=== PATIENT | male | born 1975 | race Caucasian/White ===

== ENCOUNTER 2022-06-19 18:48 | Emergency (ER) | payer BC, SELFPAY ==
[2022-06-19] VITALS (11 sets, daily range): BP systolic 126–146; BP diastolic 82–96; PULSE 60–102; RESP 14–20; TEMP 36.9; O2SAT 97–100
--- NOTE | ~2022-06-19 | CT_ITS ---
Clinical Indication: Pulmonary embolus CT Scan of the Chest with Contrast: Technique: Contiguous sections were acquired throughout the chest after intravenous administration of 100 cc of Omnipaque 350. Dose reduction technique was used on this scan by utilizing automated expos ure control and iterative reconstruction technique. The dose-length product (DLP) was 617.49 mGy-cm. Findings: There is no evidence of any significant mediastinal, hilar or axillary lymphadenopathy. There is no f illing defect in the pulmonary arterial tree to suggest pulmonary embolus. There is no evidence of ao rtic dissection or aneurysm. There is no evidence of pleural or pericardial effusion. There are several patchy, peripheral airspace opacities, most notably in the right upper lobe and sup erior segment right lower lobe. Images through the upper abdomen reveal small hepatic cysts. Mild compression deformity of T6 and T9 noted. Impression: No evidence of pulmonary embolus, aortic dissection, or aortic aneurysm. Several patchy, peripheral airspace opacities, as noted above. Correlate for atypical infectious or i nflammatory process. Mild compression deformities of T6 and T9. Reviewed, dictated and finalized at [facility]. Impression: No evidence of pulmonary embolus, aortic dissection, or aortic aneurysm. Several patchy, peripheral airspace opacities, as noted above. Correlate for at ypical infectious or inflammatory process. Mild compression deformities of T6 and T9.
--- NOTE | ~2022-06-19 | XR_ITS ---
EXAMINATION: XR chest 2V 06/19/2022 20:18 INDICATION: Chest pain PROCEDURE: 2 view chest COMPARISON: 03/04/2013 FINDINGS: There is a focal pleural-based asymmetry right mid thorax. Shallow inspiration with crowdin g of the pulmonary vessels. The cardiomediastinal silhouette is within normal limits. There are no p leural effusions. There is no pneumothorax suspected. IMPRESSION: 1: No acute cardiopulmonary disease. 2: Focal pleural-based asymmetry right mid thorax. Recommend correlation with noncontrast CT on a no nemergent basis.. Reviewed, dictated and finalized at [facility]. IMPRESSION: 1: No acute cardiopulmonary disease. 2: Focal pleural-based asymmetry right mid thorax. Recommend correlation with noncontrast CT on a nonemergent basis..
--- NOTE | 2022-06-19 18:49 | ECG_ITS ---
Measurements Intervals [place] Rate: 75 P: 21 [place]: 154 QRS: 9 QRSD: 93 T: 10 QT: 381 QTc: 425 Interpretive Statements SINUS RHYTHM BORDERLINE T WAVE ABNORMALITY- INFERIOR LEADS BORDERLINE ECG NO PREVIOUS ECG AVAILABLE FOR COMPARISON Electronically Signed On 06-19-2022 21:23:15 CDT by Clifford Rangel D.O.
[2022-06-19 19:21] LABS: Basophils Percent Auto 0.2 % (0.2-1.2); Eosinophils Absolute Auto 0.1 K/mm3 (0-0.3); Eosinophils Percent Auto 0.7 % (0-4.4); Immature Granulocyte Absolute 0.02 K/mm3 (0.00-0.031); Immature Granulocyte Percent A 0.2 % (0-0.5); Lymphocytes Absolute Auto 2.52 K/mm3 (0.9-3.2); Lymphocytes Percent Auto 28.2 % (18.3-44.2); Mean Corpuscular HGB Conc 34.1 g/dl (32-36); Mean Corpuscular Volume 90.9 fl (80-100); Mean Platelet Volume 10.2 fl (7.4-10.4); Monocytes Absolute Auto 0.7 K/mm3 (0.1-0.6); Monocytes Percent Auto 7.9 % (2.6-8.5); Neutrophils Absolute Auto 5.6 K/mm3 (1.3-6.7); Neutrophils Percent Auto 62.8 % (45.5-73.1); Platelet Count Result 230 k/mm3 (150-375); Red Blood Count 4.84 M/mm3 (4.6-6.20); Red Cell Distribution Width 12.6 % (11.5-14.5)
[2022-06-19 19:34] LABS: Prothrombin Time 12.9 Seconds (11.1-14.7)
[2022-06-19 19:35] LABS: Alanine Aminotransferase 26 U/L (6-50); Albumin Level 4.7 g/dL (3.5-5.1); Alkaline Phosphatase 60 U/L (38-126); Anion Gap 5 mmol/L (8-16); Aspartate Amino Transferase 28 U/L (17-59); Bilirubin,Total 0.9 mg/dL (0.2-1.3); Blood Urea Nitrogen 14 mg/dL (9-20); Carbon Dioxide 29 mmol/L (22-30); Chloride 98 mmol/L (98-107); Estimated CRCL calculation 103 ml/min; Estimated Glomerular Filt Rate > 60; Glucose 127 mg/dL (65-110); Lipase 72 U/L (23-300); Partial Thromboplastin Time 26.5 SECONDS (22.3-36.8); Potassium 3.9 mmol/L (3.4-5.0); Sodium 132 mmol/L (137-145)
[2022-06-19 19:47] LABS: Troponin I < 0.012 ng/mL (0.000-0.034)
[2022-06-19] MEDS: ASPIRIN 81 MG CHEWABLE TABLET 324 MG PO (23:45)
[2022-06-20] VITALS (12 sets, daily range): BP systolic 118–132; BP diastolic 69–84; PULSE 50–66; RESP 13–20; TEMP 36.6; O2SAT 95–99
--- NOTE | 2022-06-20 00:11 | ED.GENADULT ---
HPI - General Adult General Chief complaint: Chest Pain Stated complaint: cp, sob Time Seen by Provider: 06/19/22 23:04 History of Present Illness HPI narrative: This is a 47-year-old male presenting ED with chief complaint of chest pain. Patient said that she has been started earlier tonight, as a sharp pain in his right chest wall, is nonradiating, 8 out 10 intensity and constant. He has never experienced pain like this before. It is worse with inspiration there are no alleviating factors. It is associated with shortness of breath. Is not associated with diaphoresis vomiting exertion, fever chills productive cough or lower extremity edema. Patient has no risk factors for PE. He does work as an precision aircraft systems assembler. Related Data Allergies Allergy/AdvReac Type Severity Reaction Status Date / Time No Known Allergies Allergy Unverified 02/09/16 18:39 [facility] Past Medical History Medical History Asthma Exam Narrative: APPEARANCE: No apparent distress. Head: atraumatic. EYES: EOMI, NOSE: Atraumatic NECK: Trachea midline sina RESPIRATORY: No increased rate of breathing , clear to auscultation bilaterally CARDIOVASCULAR: RRR, no peripheral edema ABDOMINAL: Non-distended soft no guarding rebound MUSCULOSKELETAl: No obvious deformities NEURO: Alert. Moving 4/4 extremities SKIN:: Warm, dry. 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 lab work x-ray EKG been obtained. -DDX includes but is not limited to: Pleurisy, musculoskeletal pain, pneumonia, ACS -Co-morbidities complicating care: asthma, precision aircraft systems assembler -Social determinants of health: patient works as an precision aircraft systems assembler, lives with his May and his [id number] -External Chart Review: none -Hx from independent Sources: -May -Discussion of Management/Consultants: none -Independent interpretation of studies: Independent EKG interpretation: Rhythm [sinus], Rate [75], [place] -[normal], [place] -[normal], QRS [narrow], QTC [normal], T waves -[negative for concerning inversions], ST Segments - [Negative for concerning elevations] Final interpretations: [Normal Sinus Rhythm] CBC within normal limits. Metabolic panel was normal. Troponins negative x2. Chest x-ray showed a pleural based lesion on the right side that directly corresponds with the patient's pain. CT has been ordered to further evaluate. CT PE did not reveal a pulmonary embolism. Stat rad did not comment on the pleural finding. Dx tests considered but not ordered: None -Procedures: -Interventions: Motrin, Tylenol, aspirin -Shared decision making / Disposition: Upon re-evaluation patient's symptoms improved dramatically with Motrin and Tylenol. He is comfortable going home. I did discuss the pleural based lesion on the right side that corresponds with his pain. He will be directed to follow up with pulmonology for further evaluation. -RX Vital Signs Vital Signs: Vital Signs Temperature 98.4 F 06/19/22 19:13 Pulse Rate 102 H 06/19/22 19:13 Respiratory Rate 18 06/19/22 19:13 Blood Pressure 146/91 H 06/19/22 19:13 Pulse Oximetry 97 06/19/22 19:13 Oxygen Delivery Room Air 06/19/22 19:13 Temperature 98 F 06/20/22 03
[2022-06-20 00:14] LABS: Troponin I < 0.012 ng/mL (0.000-0.034)
[2022-06-20] MEDS: IBUPROFEN 400 MG TABLET 800 MG PO (00:53)
[2022-06-20] MEDS: ACETAMINOPHEN 500 MG TABLET 1000 MG PO (00:53)
[2022-06-20 02:22] LABS: Troponin I < 0.012 ng/mL (0.000-0.034)
== END 2022-06-20 04:20 | disposition home or self-care (01) ==
PROVIDERS: Emergency Medicine; Emergency Provider Emergency Medicine; PCP Internal Medicine
DX: R09.1 Pleurisy (principal); J94.8 Other specified pleural conditions; R94.31 Abnormal electrocardiogram [ECG] [EKG]
CPT/HCPCS: 36415; 71046; 71275; 80053; 83690; 84484; 85025; 85610; 85730; 93005; 99284; A9270; Q9967

== ENCOUNTER 2022-11-14 13:58 | Outpatient (CLI) | payer BC, SELFPAY ==
--- NOTE | 2022-11-17 17:11 | WPDPFTINT ---
PFT Procedure Performed PFT Procedure Performed Spirometry with Pre/Post Bronchodilator Plethysmography (Lung Vol) Diffusing Cap (DLCO) Flow Vol Loop PFT Interpretation This is a pulmonary function test with pre and post-bronchodilator spirometry, plethysmography and diffusing capacity. The test was performed and results interpreted in accordance with the 2019 and 2005 ATS/ERS Task Force guidelines respectively using the Global Lung Function Initiative-2012 reference equations. Patient demonstrated good effort and cooperation. Reproducibility criteria were met. The quality of the pre bronchodilator spirometry maneuver was Grade A and post bronchodilator spirometry maneuver was Grade A. Findings: Spirometry: The contour the inspiratory and expiratory flow tracing are normal. The pre bronchodilator FVC is 3.65 L, 73% predicted. The pre bronchodilator FEV1 is 2.87 L, 72% predicted. The pre bronchodilator FEV1: FVC ratio 79%. The post bronchodilator FVC is 3.93 L, representing an 8% increase. The post bronchodilator FEV1 is 3.12 L, representing a 9% increase. The post bronchodilator FEV1: FVC ratio is 79%. Plethysmography: The total lung capacity is 5.37 L, 77% predicted. The functional residual capacity is 1.77 L, 50% predicted. The residual volume is 1.52 L, 75% predicted. Diffusing capacity: The diffusing capacity unadjusted for hemoglobin and carboxyhemoglobin is 28.4, 92% predicted. The diffusing capacity adjusted for alveolar volume is 5.61, 122% predicted. Impression: There is a mild restrictive ventilatory abnormality. The spirometry is normal without evidence of an obstructive abnormality. There is no significant improvement after inhaling a single dose of albuterol. The diffusing capacity is normal. There are no prior studies for comparison
== END 2022-11-14 13:59 | disposition home or self-care (01) ==
PROVIDERS: PCP Internal Medicine; Visit Provider Nurse Practitioner
DX: J45.909 Unspecified asthma, uncomplicated (principal)
CPT/HCPCS: 94060; 94726; 94729

== ENCOUNTER 2024-07-23 13:19 | Outpatient (CLI) | payer OTHER, SELFPAY ==
--- NOTE | ~2024-07-23 | CT_ITS ---
CT Scan of the Chest without Contrast: Clinical Indication: Abnormal findings on diagnostic imaging Technique: Contiguous sections were acquired throughout the chest without intravenous contrast. Dose reduction technique was used on this scan by utilizing automated exposure control and iterative recon struction technique. The dose-length product (DLP) was 416.13 mGy-cm. COMPARISON: 06/20/2022 Findings: There is no evidence of any significant mediastinal, hilar or axillary lymphadenopathy. The mediastin al soft tissues appear normal. There is no evidence of pleural or pericardial effusion. The lungs are clear. No pulmonary nodules or infiltrates are noted. Images through the upper abdomen reveal no abnormalities. Stable chronic compression deformities in t he spine, most notably at T6, T9, and T12. Impression: No acute abnormality. Clear lungs. Stable compression deformities in the spine. Reviewed, dictated and finalized at [facility]. Impression: No acute abnormality. Clear lungs. Stable compression deformities in the spine.
--- OUTSIDE RECORDS SUMMARY | 2024-07-23 13:24 | XMS_ITS | Data Portability ---
Author Organization [place] [facility], Main Office Address [address] [place] [address] Care Team Providers Care Heel Stiffener Name Role Phone LORENZO FLETCHER Primary Care Provider Assessment Encounter Date Assessment Date Assessment LastModified by Organization Details LastModified Time 06/24/2022 06/24/2022 Will check some inflammatory markers and also ERIC C-reactive protein rheumatoid factor doxycycline for atypical pathogens for 10 days I will see him back in a month if he gets worse fever chills cough night sweats anything like that he will call back. I plan to reviewed with films with Radiology at the hospital to see exactly what it is that they are seeing may just need to re-scanned after 4-6 weeks to see if these clear. discussed with him and . they are in agreement with plan [email or web address] Not available 06/24/2022 22:35:11 07/29/2022 07/29/2022 Pulmonary consult significance of CT scan findings not clear just yet Allergy consult Does not have any radicular symptoms from his lower back will continue to monitor I will see him back in about 4 months [email or web address] Not available 07/29/2022 21:19:51 Plan of Treatment Reminders Order Date Submit Date Provider Last Modified By Organization Details Last Modified Time Details Appointments None recorded. 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 Thank you 2022 023 BESSIE Deb Brown MD, [address] [facility], [place], [address], 15:38:[address] referral 2022 023 [email or web address] Not available 15:58:24 Procedures None recorded. Surgeries None recorded. Imaging CT, chest, w/o contrast - DUE 05/2023 023 [email or web address] Not available 12:04:56 CT, chest, w/o contrast - high res, reference #[id number] No auth required 2022 023 [facility] ([facility] Scheduling), [address] [place], [address], 3 14:23:15 Medication Orders doxycycline hyclate 100 mg capsule [address] [id number], [address] [facility], [place], [place], [id number], 3 11:47:00 Patient TargetsNo targets recorded. 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 Thank you Referring Physician: Lorenzo Fletcher, Internal Medicine, Encounter Date: 07/29/2022 Results Created Date Observation Date Name Description Value Unit Range Abnormal Flag Note LastModifiedBy Organization Detail LastModifiedTime 06/25/19 23 06/24/2022 COMPR EHENS CHRISTINA METAB OLIC PANEL sodium 134 mmol/ L 137-14 5 low Not Available [facility] (Lab) [address] [place], [address], 06/24/2022 12:41:24 06/25/19 23 06/24/2022 COMPR EHENS CHRISTINA METAB OLIC PANEL potassium 4.4 mmol/ L 3.5-5. 1 Not Available [facility] (Lab) [address] [place], [address], 06/24/2022 12:41:24 06/25/19 23 06/24/2022 COMPR EHENS CHRISTINA METAB OLIC PANEL chloride 99 mmol/ L 98-107 Not Available [facility] (Lab) [address] [place], [address], 06/24/2022 12:41:24 06/25/19 23 06/24/2022 COMPR EHENS CHRISTINA METAB OLIC PANEL carbon dioxide 26 mmol/ L 22-30 Not Available [facility] (Lab) [address] [place], [address], 06/24/2022 12:41:24 06/25/19 23 06/24/2022 COMPR EHENS CHRISTINA METAB OLIC PANEL anion gap 13.4 mmol/ L 14-22 low Not Available [facility] (Lab) [address] [place], [address], 06/24/2022 12:41:24 06/25/19 23 06/24/2022 COMPR EHENS CHRISTINA METAB OLIC PANEL glucose 109 mg/dL 70-99 high Not Available [facility] (Lab) [address] [place], [address], 06/24/2022 12:41:24 06/25/19 23 06/24/2022 COMPR EHENS CHRISTINA METAB OLIC PANEL BUN 10 mg/dL 8-19 Not Available [facility] (Lab) [address] [place], [address], 06/24/2022 12:41:24 06/25/19 23 06/24/2022 COMPR EHENS CHRISTINA METAB OLIC PANEL creatinine 0.89 mg/dL 0.66-1 .25 Not Available [facility] (Lab) [address] [place], [address], 06/24/2022 12:41:24 06/25/19 23 06/24/2022 COMPR EHENS CHRISTINA METAB OLIC PANEL GFR >60 Refer ence Range : Adair ge GFR Healt hy Adult : >60 mL/mi n/1.7 3 m2 Chron ic Kidne y Disea se: 15-60 mL/mi n/1.7 3 m2 Kidne y Failu re: <15/m L/min /1.73 m2 www.n iddk. nih.g ov The MDRD study equat ion has not been valid ated in child sea <18 years of age; pregn ant women ; the elder ly >85 years of age; or in some racia l or ethni c subgr oups, such as Hispa nics. Outsi de the valid ated candelaria eters , estim ated GFR is less accur ate, requi ring clini dylan judgm ent on a case- by-ca se basis . Clini dylan inter preta tion for other races and ages must be made by the clini el. The MDRD study equat ion has not been valid ated for the evalu ation of serum creat inine relat ed to nutri taylor l statu s or medic ation usage . For perso ns <18 years of age, a pedia tric GFR calcu lator is avail able on the [facility] websi te: https ://amberly porter.tina gibson/pascual cox s/kdo qi/gf r_cal culat or Not Available [facility] (Lab) [address] [place], [address], 06/24/2022 12:41:24 06/25/19 23 06/24/2022 COMPR EHENS CHRISTINA METAB OLIC PANEL alkaline phosphatase 62 U/L 38-126 Not Available [facility] (Lab) [address] [place], [address], 06/24/2022 12:41:24 06/25/19 23 06/24/2022 COMPR EHENS CHRISTINA METAB OLIC PANEL alanine aminotransfe rase 26 U/L 0-50 Not Available [facility] (Lab) [address] [place], [address], 06/24/2022 12:41:24 06/25/19 23 06/24/2022 COMPR EHENS CHRISTINA METAB OLIC PANEL aspartate aminotransfe rase 27 U/L 15-46 Not Available [facility] (Lab) [address] [place], [address], 06/24/2022 12:41:24 06/25/19 23 06/24/2022 COMPR EHENS CHRISTINA METAB OLIC PANEL bilirubin, total 1.30 mg/dL 0.20-1 .30 Not Available [facility] (Lab) [address] [place], [address], 06/24/2022 12:41:24 06/25/19 23 06/24/2022 COMPR EHENS CHRISTINA METAB OLIC PANEL calcium 9.1 mg/dL 8.4-10 .2 Not Available [facility] (Lab) [address] [place], [address], 06/24/2022 12:41:24 06/25/19 23 06/24/2022 COMPR EHENS CHRISTINA METAB OLIC PANEL total protein 7.2 g/dL 6.3-8. 2 Not Available [facility] (Lab) [address] [place], [address], 06/24/2022 12:41:24 06/25/19 23 06/24/2022 COMPR EHENS CHRISTINA METAB OLIC PANEL albumin 4.4 g/dL 3.4-5. 0 Not Available [facility] (Lab) [address] [place], [address], 06/24/2022 12:41:24 06/25/19 23 06/24/2022 COMPR EHENS CHRISTINA METAB OLIC PANEL globulin 2.8 g/dL 2.6-4. 2 Not Available [facility] (Lab) [address] [place], [address], 06/24/2022 12:41:24 06/25/19 23 06/24/2022 COMPR EHENS CHRISTINA METAB OLIC PANEL A/G ratio 1.6 ratio 1.0-2. 0 Not Available [facility] (Lab) [address] [place], [address], 06/24/2022 12:41:24 06/25/19 23 06/24/2022 RHEUM ATOID FACTO R rf <8.6 IU/mL 0.0-11 .9 Not Available [facility] (Lab) [address] [place], [address], 06/24/2022 12:49:46 06/25/19 23 06/24/2022 C REACT CHRISTINA PROTE IN,UL TRA SENS C-reactive protein 6.22 mg/dL 0.0-0. 5 high Not Available [facility] (Lab) [address] [place], [address], 06/24/2022 12:49:53 06/25/19 23 06/24/2022 SEDIM ENTAT ION RATE erythrocyte sedimentatio n rate 16 mm/HR 0-20 Not Available [facility] (Lab) [address] [place], [address], 06/24/2022 13:05:05 06/25/19 23 06/26/2022 ERIC/A NTINU CLEAR ANTIB ODIES ,IFA antinuclear antibodies, ifa Negati ve Negat christina <1:80 Borde rline 1:80 Posit christina >1:80 ICAP nomen clatu re: AC-0 For more infor meme whitt about Hep-2 cell patte rns use ANApa ttern s.org , the offic ial juan heart for the Inter natio nal Conse nsus on Antin uclea r Antib brooks (ERIC) Patte rns (ICA ). Perfo rmed at: [address], [place] [address] Lab Direc tor: Jeyson mcclure PhD, Phone : [phone] Not Available [facility] (Lab) [address] [place], [address], 06/26/2022 13:10:58 08/02/19 22 07/16/2021 CPAP compl iance * No observ ation record ed. [id number] Not Available 06/04/2022 01:56:04 06/20/19 23 06/19/2022 XR, chest , 2 view No observ ation record ed. [address], [address], 06/24/2022 13:27:25 06/21/19 23 06/20/2022 CT, chest , w/ contr ast No observ ation record ed. [address], [address], 06/30/2022 16:00:35 07/24/19 CT, chest , w/o contr ast [facility] [address] [place] [address] [phone] [facility] Name: JAROCHO BUCHANAN Access ion #: [id number] Sex: M : 1975 7 Locati on: RA2 Attend ing Physic mayra: LU FLETCHER Orderi ng Physic mayra: LU FLETCHER Exam Date: 023 8:06 AM Exam Name: CT CHEST WO Admitt ing Diagno sis(es ): RADIOL OGY REPORT - FINAL EXAM: CT CHEST WO HISTOR Y: pleuri sy COMPAR FABI: None. TECHNI QUE: The chest is evalua al withou t intrav enous contra st. Axial images are recons tructe d in the gonzalez l, sagitt al, and axial planes and are review ed with medias tinal lung window s settin gs. This CT exam was perfor med using one or more of the follow ing dose reduct ion techni ques: Automa al exposu re contro l, adjust ment of the mA and/or kV accord ing to patien t size, or use of iterat christina recons tructi on techni que. FINDIN GS: Heart: Normal size, no perica rdial effusi on Page 1 of 3 [facility] Guilherme Name: JAROCHO BUCHANAN Access ion #: [id number] Sex: M : 1975 7 Exam Date: 023 8:06 AM Exam Name: CT CHEST WO Admitt ing Diagno sis(es ): Vascul ar struct ures: Unrema rkable Pleura l space: No eviden ce of pleura l plaque s. No pneumo thorax . No pleura l effusi ons. Lungs: No suspic ious nodule s or consol idates . There areas of linear atelec tatic densit y within the right upper lobe, right middle lobe and left lower lobe. Medias tinum: No signif icant medias tinal mass or lympha denopa thy. Osseou s struct ures: *Radhames red with the prior study of 2018, there is a 25% superi or endpla te compre ssion deform ity of the superi or endpla te of the T6 verteb ral body new compar ed with 2019, yet, age indete rminat e based on appear ance. If the patien t has sympto matolo gy in this area, MRI of the thorac ic spine withou t contra st would prove benefi cial. *Mild stable 5% superi or endpla te compre ssion deform ity of T7. *Multi level degene rative change s noted demons tratin g progre ssion. Extrat horaci c soft tissue s: Unrema rkable Upper abdome n: Simple right and left hepati c lobe cysts re-maykel ntifie d, stable . No adrena l mass. IMPRES KAREN: 1. Age indete rminat e 25% superi or endpla te compre ssion of T6, correl ate with sympto matolo gy, if the possib ility of a subacu te fractu re exists , and, additi onal evalua tion is clinic ally necess jerrell, MRI would prove benefi cial. Page 2 of 3 [facility] Guilherme robbins Name: JAROCHO BUCHANAN Access ion #: [id number] Sex: M : 1975 7 Exam Date: 8:06 AM Exam Name: CT CHEST WO Admitt ing Diagno sis(es ): 2. Multil evel degene rative change s noted throug hout the thorac ic spine. 3. The bilate ral pleura l spaces appear unrema rkable . 4. No effusi ons or consol idates . Create d and electr onical ly signed by: Kev bernal MD Signed Date: 8:33 AM (CT) Dictat ed by: Kev bernal MD DD: 8:33 AM (CT) DT: 8:33 AM (CT) Page 3 of [email or web address] [place] [address] (Imaging) [address] [place] [address], [address], 07/29/2022 16:33:48 07/26/20 23 10/29/2022 CT, chest , w/o contr ast No observ ation record ed. [email or web address] [facility] (One Call Scheduling) [address] [place], [address], 11/06/2022 18:07:48 11/18/19 23 11/14/2022 compl ete PFT w/ post [facility] hodil ator delaney metry * No observ ation record ed. [email or web address] (Cardiology & Emg) [address] [facility] [address], [place], [address], 11/21/2022 15:59:13 Result Notes None recorded. Problems Name Problem SNOMED Code Status Onset Date Resolution Date Notes Provider Name and Address Organization Details Recorded Time Otalgia 23356670 Active Not Available [facility] 3 09:00:26 Body mass index 30+ - obesity 777784324 Active 2021 Not Available [facility] 3 09:00:26 Asthma 860030008 Active Not Available [facility] 3 09:00:26 Wax in ear canal 747755404 Active Not Available [facility] 3 09:00:26 Cut of hand 873206030 Active Not Available [facility] 3 09:00:26 History of SARS-CoV-2 4223192044665 83078 Active 2021 Not Available [facility] 3 09:00:26 Pain in right knee Active 2016 Not Available [facility] 3 09:00:26 Sinusitis 77986839 Active Not Available [facility] 3 09:00:26 Dyslipidem ia 475876136 Active 2018 Not Available [facility] 3 09:00:26 Chronic cough 66772444 Active 2021 Not Available [facility] 3 09:00:26 Obstructiv e sleep apnea syndrome 14168168 Active 2019 Not Available [facility] 3 09:00:26 Pleurisy 207256694 Active 2022 Not Available [facility] 3 09:00:26 Computed tomography result abnormal 406195266 Active 2022 Not Available [facility] 3 09:00:26 Seasonal allergy 156787586 Active 2022 Not Available [facility] 3 09:00:26 Abnormal findings on diagnostic imaging of lung 882766177 Active 2022 Not Available [facility] 3 09:00:26 Atelectasi s 10402211 Active 2022 Not Available [facility] 3 09:00:26 Problem Notes None recorded. Procedures Surgical History Date Name Laterality Status Provider Name and Address Organization Details Recorded Time [place] [facility] completed Not Available [facility] 06/04/2022 01:22:56 Imaging Results Imaging Date Name Status LastModified by Organization Details LastModified Time 07/16/2021 CPAP compliance* completed [id number] Information not available 06/04/2022 01:56:04 06/19/2022 XR, chest, 2 view completed [address], [address], 06/24/2022 13:27:25 06/20/2022 CT, chest, w/ contrast completed [address], [address], 06/30/2022 16:00:35 07/23/2022 CT, chest, w/o contrast completed [email or web address] (Imaging) [address] [place], [address], 07/29/2022 16:33:48 10/29/2022 CT, chest, w/o contrast completed [email or web address] ([facility] Call Scheduling) [address] [place], [address], 11/06/2022 18:07:48 11/14/2022 complete PFT w/ post bronchodilator spirometry* completed [address] (Cardiology & Emg) [address] [place] [address], [place], [address], 11/21/2022 15:59:13 Procedure Notes None recorded. Medical Equipment None Reported. Allergies No known drug allergies Medications Name Sig Start Date Stop Date Status Note LastModified by Organization Details LastModified Time celecoxib 200 mg capsule TK 1 C PO QD 03/01 completed Not Available Not Available Not Available doxycyclin e hyclate 100 mg capsule TAKE 1 CAPSULE BY MOUTH TWICE DAILY FOR 10 DAYS 07/29 completed Not Available Not Available Not Available azithromyc in 250 mg tablet TK 2 TS PO FIRST DAY THEN TK 1 T PO QD 01/23 completed Not Available Not Available Not Available benzonatat e 200 mg capsule 12/19 completed Not Available Not Available Not Available pantoprazo le 40 mg tablet,del ayed release TAKE 1 TABLET BY MOUTH EVERY DAY active Not Available Not Available No t Available etodolac 400 mg tablet Take 1 tablet twice a day by oral route for 30 days. active Not Available Not Available No t Available montelukas t 10 mg tablet TAKE 1 TABLET BY MOUTH EVERY DAY active Not Available Not Available No t Available methylpred nisolone 4 mg tablets in a dose pack uud 11/09 completed Not Available Not Available Not Available albuterol sulfate HFA 90 mcg/actuat ion aerosol inhaler INL 2 PFS PO Q 6 H PRF SOB 12/24 completed Not Available Not Available Not Available fluticason e propionate 50 mcg/actuat ion nasal spray,susp ension Inhale 1 spray every day by intranasa l route. active Not Available Not Available No t Available zolpidem ER 6.25 mg tablet,ext ended release,mu ltiphase TAKE ONE TABLET BY MOUTH EVERY NIGHT AT BEDTIME NEEDED active Not Available Not Available No t Available Arnuity Ellipta 200 mcg/actuat ion powder for inhalation INHALE 1 PUFF BY MOUTH EVERY DAY DIRECTED 09/24 completed Not Available Not Available Not Available Arnuity Ellipta 100 mcg/actuat ion powder for inhalation Inhale 1 puff every day by inhalatio n route as directed for 30 days. active One puff daily, rinse and spit after use Not Available Not Available Not Available Afluria Qd (36 mos up)(PF)60 mcg (15 mcg x4)/0.5 mL IM syringe ADM 0.5ML IM UTD active Not Available Not Available No t Available Vitals Date Recorded Body mass index (BMI) Body height Oxygen saturation Oxygen saturation in Arterial blood by Pulse oximetry Heart rate Body temperature Body weight Systolic blood pressure Diastolic blood pressure Provider Name and Address Organization Details Last Updated DateTime 2 34.3 kg/m2 177.8 cm 97 % 97 % 65 /min 97.2 [degF] 334327. 58 g 122 mm[Hg] 72 mm[Hg] Not Available [facility] 3 01:33:43 Date Recorded Body height Body mass index (BMI) Body weight Body temperature Heart rate Systolic blood pressure Diastolic blood pressure Provider Name and Address Organization Details Last Updated DateTime 3 177.8 cm 32.4 kg/m2 240557. 88 g 98.9 [degF] 66 /min 110 mm[Hg] 76 mm[Hg] Marilin navarro RN [facility] [employer] 3 10:39:42 Date Recorded Body height Body mass index (BMI) Body weight Body temperature Heart rate Systolic blood pressure Diastolic blood pressure Provider Name and Address Organization Details Last Updated DateTime 3 177.8 cm 32.6 kg/m2 928604. 47 g 98 [degF] 58 /min 124 mm[Hg] 80 mm[Hg] TRISTAN Aldana [facility] [employer] 3 11:48:59 Date Recorded Body height Body temperature Body mass index (BMI) Body weight Heart rate Oxygen saturation Oxygen saturation in Arterial blood by Pulse oximetry Systolic blood pressure Diastolic blood pressure Provider Name and Address Organization Details Last Updated DateTime 3 177.8 cm 97.2 [degF] 32.4 kg/m2 961695. 88 g 72 /min 98 % 98 % 128 mm[Hg] 70 mm[Hg] Kim Juan MA [facility] 3 12:35:38 Date Recorded Body height Body mass index (BMI) Body weight Heart rate Oxygen saturation Oxygen saturation in Arterial blood by Pulse oximetry Systolic blood pressure Diastolic blood pressure Provider Name and Address Organization Details Last Updated DateTime 3 177.8 cm 32.4 kg/m2 661263. 88 g 60 /min 98 % 98 % 118 mm[Hg] 70 mm[Hg] Kim Juan MA [facility] 15:48:51 Social History Question Answer Notes LastModified by Organization Details LastModified Time Tobacco Smoking Status Never Smoker Sharon Avelar MA null, [facility] 10/17/2022 12:25:50 Do You Have An Advance Directive? No [id number] Information not available 06/04/2022 What Is Your Level Of Alcohol Consumption? Moderate [id number].[id number] [id number] Information not available 06/04/2022 Do You Wear A Helmet When Biking? No Does Not Bike Information not available 10/17/2022 What Is Your Level Of Caffeine Consumption? Moderate [id number].0301 [id number] Information not available 06/04/2022 How Much Tobacco Do You Chew? None [id number] [id number] Information not available 06/04/2022 In The 14 Days Before Symptom Onset, Have You Had Close Contact With A Laboratory-confi rmed COVID-19 While That Case Was Ill? No Information not available 10/17/2022 In The 14 Days Before Symptom Onset, Have You Had Close Contact With A Person Who Is Under Investigation For COVID-19 While That Person Was Ill? No Information not available 10/17/2022 Are You Currently Employed? Yes Information not available 10/17/2022 What Type Of Diet Are You Following? REGULAR [id number].030 [id number] Information not available 06/04/2022 Which Illicit Or Recreational Drugs Have You Used? None Information not available 10/17/2022 Do You Or Have You Ever Used E-cigarettes Or Vape? Never Used Electronic Cigarettes Information not available 10/17/2022 What Is The Highest Grade Or Level Of School You Have Completed Or The Highest Degree You Have Received? 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 No Information not available 10/17/2022 What Is The Fluoride Status Of Your Home? Unknown Information not available 10/17/2022 Are There Any Guns Present In Your Home? Yes Information not available 10/17/2022 Do You Use Insect Repellent Routinely? No Information not available 10/17/2022 Where [facility] You Live? [facility] Information not available 10/17/2022 Do You Have A Medical Power Of Requirements Analyst? No Information not available 10/17/2022 What Was The Date Of Your Most Recent Tobacco Screening? 07/29/2022 Information not available 10/17/2022 Have You Ever Been Counseled For Unhealthy Alcohol Use? No Information not available 10/17/2022 Do You Have Any Pets? No Information not available 10/17/2022 What Is Your Relationship Status? [id number] [id number] Information not available 06/04/2022 Do You Use Your Seat Belt Or Car Seat Routinely? Yes Information not available 10/17/2022 Do You Have Smoke And Carbon Monoxide Detectors In Your Home? Yes Information not available 10/17/2022 Are You Passively Exposed To Smoke? No Information not available 10/17/2022 Do You Or Have You Ever Used Smokeless Tobacco? Never Used Smokeless Tobacco [id number].0301 [id number] Information not available 06/04/2022 Are There Any Smokers In Your House? No Information not available 10/17/2022 How Much Tobacco Do You Smoke? No MIGRATION.[id number] [id number] Information not available 06/04/2022 What Types Of Sporting Activities Do You Participate In? None Information not available 10/17/2022 Do You Feel Stressed (tense, Restless, Nervous, Or Anxious, Or Unable To Sleep At Night)? [id number] Information not available 10/17/2022 Do You Use Any Illicit Or Recreational Drugs? No Information not available 10/17/2022 Do You Use Sunscreen Routinely? Yes Information not available 10/17/2022 Has Tobacco Cessation Counseling Been Provided? No Not Needed-ne mookie Smoked Information not available 10/17/2022 How Many Years Have You Smoked Tobacco? 0 Information not available 10/17/2022 Have You Recently Traveled Abroad? No Information not available 10/17/2022 Do You Have Any Dietary Restrictions? No Information not available 10/17/2022 Do You Or Have You Ever Used Any Other Forms Of Tobacco Or Nicotine? No Information not available 10/17/2022 Sex: Male Functional Status Question Answer Note LastModified by Organizat ion Details LastModified Time What is your exercise level? Occasional [id number] Information not available 06/04/2022 Mental Status None recorded. Family History Relationship Description Onset Age of this Age Resolved Age Notes LastModified by Organization Details LastModified Time Father Benign essential hypertension [id number] Not available 06/04/2022 01:23:05 Unspecified Relation Family history of Hypertension patern al side [id number] Not available 06/04/2022 01:23:05 Unspecified Relation Family history of stroke patern al side [id number] Not available 06/04/2022 01:23:05 Mother Hyperlipidem ia [id number] Not available 06/04/2022 01:23:06 Medical History Condition Response NERVE DISEASE N BLINDNESS N RHEUMATIC FEVER N KIDNEY STONES N BLADDER PROBLEMS N MRSA N OTHER # 1 N POLIO N LUNG DISEASE/DISORDER N RADIATION / CHEMOTHERAPY N COPD N Other # 2 N BLOOD DISEASES N SURGERY N EAR OR HEARING PROBLEMS N MUMPS N BOWEL PROBLEMS N DEPRESSION (INCLUDING POST ) N STROKE/TIA N ULCERS N BENIGN PROSTATIC HYPERPLASIA N MEASLES N MYOCARDIAL INFARCTION N OBESITY N GERD/NAUSEA N ANEURYSM N URINARY/BLADDER/KIDNEY PROBLEMS N CORONARY ARTERY DISEASE (CAD) N ADDICTION CONCERNS N Impotence N ENDOMETRIOSIS N USE OF BLOOD THINNERS N SKIN PROBLEMS N GASTROINTESTINAL DISORDER N PERIPHERAL VASCULAR DISEASE N MUSCLE,JOINT OR BONE PROBLEMS N GASTROINTESTINAL BLEEDING N BLOOD CLOTS N ASTHMA Y CATARACTS N ERECTILE DYSFUNCTION N VARICOSITIES N GI PROBLEMS N Low Testosterone N INFERTILITY N AIDS/HIV N CHEMOTHERAPY / RADIATION N LIVER DISEASE N MALE HYPOGONADISM N HYPERTENSION N Deficiency N ANXIETY DISORDER N BLOOD TRANSFUSION N ANEMIA/BLOOD DISORDER N CHRONIC EAR INFECTIONS N BRONCHITIS N TUBERCULOSIS N GLAUCOMA N FOOT PROBLEM N DIVERTICULITIS N SLEEP APNEA N CHICKENPOX N INFECTIOUS DISEASE N PROSTATE N HEART ARRHYTHMIA N INSOMNIA N HIGH CHOLESTEROL / HYPERLIPIDEMIA Y EYE PROBLEMS N HYPERTHYROIDISM N NEUROLOGICAL PROBLEMS N EDEMA N CHRONIC PAIN SYNDROME N HYPOTHYROIDISM N CONSTIPATION N CAROTID BLOCKAGE N BACK / NECK PROBLEMS N HAVE YOU BEEN HOSPITALIZED OR SEEN IN [facility] IN THE PAST YEAR ? N ATHEROSCLEROSIS N BREAST PROBLEMS N DIALYSIS N ECZEMA N OSTEOPOROSIS N ARTHRITIS N APPENDICITIS N DIABETES, TYPE N BAD TEETH N ENT N HEARTBURN / REFLUX N AUTISM SPECTRUM DISORDER (ASD) N HEPATITIS / LIVER DISEASE N GOUT N SLEEP DISORDER N ALZHEIMER'S DISEASE N Brain Problems N DEMENTIA N HERPES N SEIZURES/EPILEPSY N HEADACHES/MIGRAINES N VASCULAR DISEASE N PACEMAKER N Blood Disorder N DIZZINESS N HEART DISEASE/HEART PROBLEMS N KIDNEY DISEASE N MULTIPLE SCLEROSIS N CANCER: SPECIFY N CARDIAC ARRHYTHMIA N ATRIAL FIBRILLATION N Gall Stones N PULMONARY EMBOLISM N AUTOIMMUNE DISEASE N Immunizations Vaccine Type Date Status Note Provider Nam e and Address Organization Details Recorded Time COVID-19 vaccine, vector-nr, [id number], PF, 0.5 mL 1 completed Not Available [facility] 10/31/2022 09:00:27 Influenza, split virus, quadrivalent, preservative 0 completed Not Available [facility] 10/31/2022 09:00:27 Influenza, split virus, trivalent, preservative 4 completed Not Available [facility] 10/31/2022 09:00:27 Influenza, split virus, quadrivalent, PF 9 completed Not Available [facility] 10/31/2022 09:00:27 Influenza, split virus, quadrivalent, PF 8 completed Not Available [facility] 10/31/2022 09:00:27 Past Encounters Encounter ID Performer Location Encounter Start Date Encounter Closed Date Diagnosis/Indication Diagnosis SNOMED-CT Code Diagnosis ICD10 Code Diagnosis Note [id number] [facility] [place] [address] [place] [address] 06/26/2020 00:00:00 06/26/2020 21:12:16 [id number] [facility] [place] [address] [place] [address] 10/23/2020 00:00:00 10/23/2020 21:03:07 [id number] [facility] [place] [address] [facility] y , [place] [address] 04/23/2021 00:00:00 04/23/2021 21:15:56 [id number] [facility] [place] [address] [place] [address] 07/17/2021 00:00:00 07/17/2021 10:54:28 [id number] Lorenzo Fletcher MD [facility] [place] [address] [place] [address] y , [place] [address] 06/24/2022 10:27:31 06/24/2022 11:13:31 Pleurisy [id number] R09.1 [id number] Lorenzo Fletcher MD [facility] Internal [facility] [place] [address] [place] [address] [place] [address] 07/29/2022 11:40:52 07/29/2022 12:26:40 Computed tomography result abnormal 247970457 R93.89 Seasonal allergy 0330753 04 J30.2 [id number] Edelmira Rock, [facility] [place] [address] [place] [address] 10/17/2022 12:23:47 10/17/2022 13:22:44 Asthma [id number] J45.909 I do not have any testing.Co ntinue albuterol PRNCheck PFT Abnormal f indings on diagnostic imaging of lung 281786994 R91.8 CT chest 07/2022:Th ere areas of linear atelectati c density within the right upper lobe, right middle lobe and leftlower lobe.Check HRCT Atelectasis 52093503 J98 .11 Start IS, provided to patient today Obstructiv e sleep apnea syndrome 89060274 G47.33 Split night study 12/09/18 with AHI of 9.7.Minima l saturation 81%.In lab CPAP titration on 01/20/19 with best CPAP of 7.super[employer] 2019.Downl oad today with 100% use greater than 4 hours.On PAP 8 cm H2O.His AHI 0.8OSA is well correctedE ncouraged 100% compliance with all sleepFollo w with PCM for labsAdvise d good sleep habits and patterns:- Set a goal for at least 7 to 8 hours of sleep time per day.-Use the bed mainly for sleep and to go to bed only when tired. If unable to fall asleep after 30 minutes, patient should get out of bed but should not engage in any activity that requires sustained mental alertness. -Maintain a regular bedtime and wake-up time even on weekends or days off of work.-Avoi d excessive naps during the daytime. If a nap is necessary, limit it to no more than 30 minutes.-M inimize environmen cuate noise, bright lights, and extremes in bedroom temperatur e.-Avoid alcohol, caffeinate d beverages, and nicotine products for at least 6 hours prior to bedtime.-A void strenuous exercise and large meals for at least 4 hours prior to bedtime. [id number] Edelmira Rock, [facility] [place] [address] [place] [address] 11/21/2022 15:43:30 11/21/2022 16:16:47 Abnormal findings on diagnostic imaging of lung [id number] R91.8 CT chest 07/2022:Th ere areas of linear atelectati c density within the right upper lobe, right middle lobe and leftlower lobe.HRCT completed 10/2022 with no signs of ILD, mild atelectasi s to LLL, improved Asthma 546470491 J45.90 9 PFT completed with no obstructio n.Continue albuterol PRNRestric tion noted, mildRepeat in 6 months Atelectasis 40525572 J98 .[address] chestConti nue IS Obstructiv e sleep apnea syndrome [id number] G47.33 Split night study 12/09/18 with AHI of 9.7.Minima l saturation 81%.In lab CPAP titration on 01/20/19 with best CPAP of 7.[employer] 2018.Last download with 100% use greater than 4 hours.On PAP 8 cm H2O.His AHI 0.8OSA is well correctedE ncouraged 100% compliance with all sleepFollo w with PCM for labsAdvise d good sleep habits and patterns:- Set a goal for at least 7 to 8 hours of sleep time per day.-Use the bed mainly for sleep and to go to bed only when tired. If unable to fall asleep after 30 minutes, patient should get out of bed but should not engage in any activity that requires sustained mental alertness. -Maintain a regular bedtime and wake-up time even on weekends or days off of work.-Avoi d excessive naps during the daytime. If a nap is necessary, limit it to no more than 30 minutes.-M inimize environmen cuate noise, bright lights, and extremes in bedroom temperatur e.-Avoid alcohol, caffeinate d beverages, and nicotine products for at least 6 hours prior to bedtime.-A void strenuous exercise and large meals for at least 4 hours prior to bedtime. Health Concerns Section Related Observation LastModified by Organization Detai ls LastModified Time None Recorded Concern Status LastModified by Organization Details LastModified Time None Recorded Advance Directives Directive N: Payers Encounter Date Sequence Insurance Name Policy Number Policy Lin Covered Member ID Lin Member ID Guarantor Name 06/24/2022 1 [employer] [id number] C Jarocho Spear Schefft [id number] Jarocho Spear Schefft 07/29/2022 1 [employer] [id number] C Jarocho Spear Schefft [id number] Jarocho Rainer Schefft 10/17/2022 1 [place] [id number] Florinda Spear Schefft [id number] Jarocho Rainer Schefft 11/21/2022 1 [place] [id number] C Jarocho Spear Schefft [id number] Jarocho Spear Schejagjitt Notes Date Note Type Note Provider Name and Address Organization Details Recorded Time 06/24/2022 text/html ER follow-up pleuritic chest pain workup showed CT scan some patchy peripheral airspace opacities in the right upper lobe and superior segment right lower lobe. Patient has been fighting allergies for some time he has also had a little bit of cough it has been nonproductive P no fever chills night sweats weight loss or hemoptysis he does point pain from time to time. He has been using ibuprofen and his pain that took him to the hospital which was pleuritic is just about gone Lorenzo Fletcher MD [address], [place], [address], [employer] [facility] 06/24/2022 22:35:33 07/29/2022 text/html CT scan shows so me atelectatic changes in the right lung and left lower lobe paucity of symptoms but he does have problems with rhino sinusitis from time to time Lorenzo Fletcher MD [address], [place], [address], [employer] 07/29/2022 21:20:11 10/17/2022 text/html Jarocho presents to day to follow up on abnormal imaging.He was diagnosed with asthma as a child, briefly on maintenance inhaled therapy.Endorses allergies and sinus congestion, has had appointment with allergistCurrently on albuterol PRN, use is only about once per monthHe had chest pain in June and presented to the ER.Had abnormal imaging and followed up with PCM.Tells me that he has had cough most mornings with some sputum production that started in June 2019.At that time he did feel slightly sick but did not have fevers.Positive COVID April 2021He does think that his cough got slightly better after he got COVIDDenies hemoptysis and weight loss.No night sweatsNo enlarged lymph nodes or unintentional weight lossDenies wheezing, shortness of breath, waking at night with respiratory symptoms.He does not have chest tightness but he does endorse some pain, he has been rehabbing a house since he has been laid offHe is on COBRA insurance right now and has a high deductible - concerned about out of pocket costs CESIA Ruiz-RENALDO [address], [place], [address], [employer] [facility] [employer] 10/17/2022 16:06:23 11/21/2022 text/html Jarocho presents to day to follow up on recent testingNO change in symptomsDenies hemoptysis and weight loss.No night sweatsNo enlarged lymph nodes or unintentional weight lossDenies wheezing, shortness of breath, waking at night with respiratory symptoms.He does not have chest tightness but he does endorse some pain that is muscular in natureNo respiratory infection since last OV Edelmira Rock, [facility] [address] [facility], [facility] [address], [place], [address], [place] [facility] 11/21/2022 16:25:11
--- OUTSIDE RECORDS SUMMARY | 2024-07-23 13:24 | XMS_ITS | Data Portability ---
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 Kiki [email or web address] Not available 07/19/2023 15:16:15 02/01/2024 02/01/2024 advised to stay up-to-date on respiratory immunizations blood work ordered CT scan prior to next visit. Kiki. Healthy lifestyle care instructions. Follow up 6 months. [email or web address] Not available 02/01/2024 21:43:17 Plan of Treatment Reminders Order Date Submit Date Provider Last Modified By Organization Details Last Modified Time Details Appointments ANY 15 2024 03:15P Young Fletcher MD Not available Not available Not available Lab PSA, total, serum or plasma 2023 [facility], [address], [place], [address], 02/12/2024 08:26:26 CBC 2023 024 BESSIE [facility], [address], [place], [address], 02/12/2024 08:26:27 CMP, serum or plasma 2023 024 BESSIE [facility], [address], [place], [address], 02/12/2024 08:26:25 lipid panel, serum 2023 [facility], [address], [place], [address], 02/12/2024 08:26:24 noninvasi ve colorecta l cancer DNA + occult blood screening , QL, stool 2023 HARTSHORNE [facility] (Cologuard Orders Only), [address], [address], [place], [address], 02/18/2024 19:25:46 Referral None recorded. Procedures None recorded. Surgeries None recorded. Imaging CT, chest, w/o contrast - Needs scheduled for July 2024. 2023 [facility] (Im[facility]), [address], [place], [address], 07/01/2024 16:07:00 Medication Orders None recorded. Patient TargetsNo targets recorded. Patient Instructions Encounter Date Encounter Id Patient Instructions Last Modified By Organization Details Last Modified Time 02/01/2024 [id number] A healthy lifestyle: care instructions [email or web address] Not available 02/01/2024 17:29:14 Reason for Referral None Reported. Results Created Date Observation Date Name Description Value Unit Range Abnormal Flag Note LastModifiedBy Organization Detail LastModifiedTime 02/10/2002/10/2024 COLOG UARD cologuard result reportable NEGATI VE negati ve normal NEGAT CHRISTINA TEST RESUL T. A negat christina Colog uard resul t indic ates a low likel ihood that a color ectal cance r (CRC) or advan ivanna adeno ma (sheryl omato us polyp s with more advan ivanna pre-m align ant featu res) is prese nt. The chanc e that a perso n with a negat christina Colog uard test has a color ectal cance r is less than 1 in 1500 (nega tive predi ctive value >99.9 %) or has an advan ivanna adeno ma is less than 5.3% (nega tive predi ctive value 94.7% ). These data are based on a prosp ectiv e cross -sect ional study of 10,00 0 indiv idual s at [facility] risk for color ectal cance r who were scree samina with both Colog uard and colon oscop y. (Sukh Walker et al, N Engl J Med 2014; 370(1 4):12 86-12 97) The osmani l value (refe rence range ) for this assay is negat christina. COLOG UARD RE-SC REENI NG RECOM MENDA TION: Perio dic color ectal cance r scree joe is an impor tant part of preve ntive healt hcare for asymp tomat ic indiv idual s at [place] [facility] risk for color ectal cance r. Follo wing a negat christina Colog uard resul t, the Ameri can Cance r Socie ty and U.S. Multi -Soci ety Task Force scree joe guide lines recom mend a Colog uard re-sc reeni ng inter cody of 3 years . Refer ences : Ameri can Cance r Socie ty Guide line for Color ectal Cance r Scree joe: https ://amberly w.can cer.o rg/ca ncer/ colon -rect al-ca ncer/ detec tion- diagn osis- stagi ng/ac s-rec ommen datio ns.ht ml.; Audie AGUILERA, Ariel clark CR, Lionel BrownK, Color ectal Cance r Scree joe: Recom menda tions for Physi cians and Patie nts from the U.S. Multi -Soci ety Task Force on Color ectal Cance r Scree joe , Pavel trinidad y 2017; 112:1 016-1 030. TEST DESCR IPTIO N: [place] site algor ithmi c pedro sis of stool DNA-b iomar kers with hemog lobin immun oassa y. Quant itati ve value s of indiv idual bioma rkers are not repor table and are not assoc iated with indiv idual bioma rker resul t refer ence range s. Colog uard is inten ded for color ectal cance r scree joe of adult s of eithe r sex, 45 years or older , who are at [facility] for color ectal cance r (CRC) . Colog uard has been appro farzana for use by the U.S. FDA. The perfo rmanc e of Colog uard was estab lishe d in a cross secti onal study of [facility] adult s aged 50-84 . Colog uard perfo rmanc e in patie nts ages 45 to 49 years was estim ated by sub-g roup pedro sis of near- age group s. Colon oscop ies perfo rmed for a posit christina resul t may find as the most clini jarrod signi fican t lesio n: color ectal cance r [4.0% ], advan ivanna adeno ma (incl uding sessi le bjorn al polyp s great er than or equal to 1cm diame ter) [20%] or non- advan ivanna adeno ma [31%] ; or no color ectal neopl valarie [45%] . These estim ates are deriv ed from a prosp ectiv e cross -sect ional scree joe study of 10,00 0 indiv idual s at [facility] risk for color ectal cance r who were scree samina with both Colog uard and colon oscop y. (Sukh Walker et al, N Engl J Med 2014; 370(1 4):12 86-12 97.) Colog uard may produ ce a false negat christina or false posit christina resul t (no color ectal cance r or preca ncero us polyp prese nt at colon oscop y follo w up). A negat christina Colog uard test resul t does not guara ntee the absen ce of CRC or advan ivanna adeno ma (pre- cance r). The curre nt Colog uard scree joe inter cody is every 3 years . (Amer ican Cance r Socie ty and U.S. Multi -Soci ety Task Force ). Colog uard perfo rmanc e data in a 10,00 0 patie nt pivot al study using colon oscop y as the refer ence metho d can be acces sed at the follo wing locat ion: www.e xactl abs.c om/re dimas . Addit ional descr iptio n of the Colog uard test proce ss, warni ngs and preca ution s can be found at www.c shane hardyd.c om. Not Available [facility] (Cologuard Orders Only) [address], [place], [address], 02/18/2024 19:25:46 02/11/20 24 02/12/2024 LIPID PANEL cholesterol, total 179 mg/dL 100-19 9 Not Available [facility] ([facility]) [address], [place], [address], 02/12/2024 08:26:23 02/11/20 24 02/12/2024 LIPID PANEL triglyceride s 115 mg/dL 0-149 Not Available [facility] ([facility]) [address] [place], [address], 02/12/2024 08:26:23 02/11/20 24 02/12/2024 LIPID PANEL HDL cholesterol 41 mg/dL >39 Not Available [facility] ([facility]) [address] [place], [address], 02/12/2024 08:26:23 02/11/20 24 02/12/2024 LIPID PANEL VLDL cholesterol dylan 21 mg/dL 5-40 Not Available [facility] ([facility]) [address] [place], [address], 02/12/2024 08:26:23 02/11/20 24 02/12/2024 LIPID PANEL LDL chol calc ([facility]) 117 mg/dL 0-99 above high normal Not Available [facility] ([facility]) [address] [place], [address], 02/12/2024 08:26:23 02/11/20 24 02/12/2024 COMP. METAB OLIC PANEL (14) glucose 90 mg/dL 70-99 Not Available [facility] ([facility]) [address] [place], [address], 02/12/2024 08:26:25 02/11/20 24 02/12/2024 COMP. METAB OLIC PANEL (14) BUN 8 mg/dL 6-24 Not Available [facility] ([facility]) [address] [place], [address], 02/12/2024 08:26:25 02/11/20 24 02/12/2024 COMP. METAB OLIC PANEL (14) creatinine 1.05 mg/dL 0.76-1 .27 Not Available [facility] ([facility]) [address] [place], [address], 02/12/2024 08:26:25 02/11/20 24 02/12/2024 COMP. METAB OLIC PANEL (14) eGFR 86 mL/mi n/1.7 3 >59 Not Available [facility] ([facility]) [address] [place], [address], 02/12/2024 08:26:25 02/11/20 24 02/12/2024 COMP. METAB OLIC PANEL (14) BUN/creatini ne ratio 8 9-20 below low normal Not Available [facility] ([facility]) [address] [place], [address], 02/12/2024 08:26:25 02/11/20 24 02/12/2024 COMP. METAB OLIC PANEL (14) sodium 142 mmol/ L 134-14 4 Not Available [facility] ([facility]) [address] [place], [address], 02/12/2024 08:26:25 02/11/20 24 02/12/2024 COMP. METAB OLIC PANEL (14) potassium 4.5 mmol/ L 3.5-5. 2 Not Available [facility] ([facility]) [address] [facility] [place], [address], 02/12/2024 08:26:25 02/11/20 24 02/12/2024 COMP. METAB OLIC PANEL (14) chloride 104 mmol/ L 96-106 Not Available [facility] ([facility]) [address] [place], [address], 02/12/2024 08:26:25 02/11/20 24 02/12/2024 COMP. METAB OLIC PANEL (14) carbon dioxide, total 24 mmol/ L 20-29 Not Available [facility] ([facility]) [address] [place], [address], 02/12/2024 08:26:25 02/11/20 24 02/12/2024 COMP. METAB OLIC PANEL (14) calcium 9.3 mg/dL 8.7-10 .2 Not Available [facility] ([facility]) [address] [facility] [place], [address], 02/12/2024 08:26:25 02/11/20 24 02/12/2024 COMP. METAB OLIC PANEL (14) protein, total 6.5 g/dL 6.0-8. 5 Not Available [facility] ([facility]) [address] [facility] [place], [address], 02/12/2024 08:26:25 02/11/20 24 02/12/2024 COMP. METAB OLIC PANEL (14) albumin 4.5 g/dL 4.1-5. 1 Not Available [facility] ([facility]) [address] [facility] [place], [address], 02/12/2024 08:26:25 02/11/20 24 02/12/2024 COMP. METAB OLIC PANEL (14) globulin, total 2.0 g/dL 1.5-4. 5 Not Available [facility] ([facility]) [address] [place], [address], 02/12/2024 08:26:25 02/11/20 24 02/12/2024 COMP. METAB OLIC PANEL (14) bilirubin, total 0.7 mg/dL 0.0-1. 2 Not Available [facility] ([facility]) [address] [place], [address], 02/12/2024 08:26:25 02/11/20 24 02/12/2024 COMP. METAB OLIC PANEL (14) alkaline phosphatase 63 IU/L 44-121 Not Available [facility]) [address] [place], [address], 02/12/2024 08:26:25 02/11/20 24 02/12/2024 COMP. METAB OLIC PANEL (14) AST (SGOT) 20 IU/L 0-40 Not Available [facility] ([facility]) [address] [place], [address], 02/12/2024 08:26:25 02/11/20 24 02/12/2024 COMP. METAB OLIC PANEL (14) ALT (SGPT) 22 IU/L 0-44 Not Available [facility] ([facility]) [address] [place], [address], 02/12/2024 08:26:25 02/11/20 24 02/12/2024 PROST ATE-S PECIF IC AG prostate specific Ag 0.2 NG/mL 0.0-4. 0 Randa ECLIA metho dolog y. Accor ding to the Ameri can Urolo gical Assoc iatio n, Serum PSA shoul d decre ase and remai n at undet ectab le level s after radic al prost atect esthela. The AUA defin es bioch emica l recur rence as an initi al PSA value 0.2 ng/mL or great er follo wed by a subse quent confi rmato ry PSA value 0.2 ng/mL or great er. Value s obtai samina with diffe rent assay metho ds or kits canno t be used inter valera maryann . Resul ts canno t be inter prete d as absol [place] evide nce of the prese nce or absen ce of michelle curtis . Not Available [facility] ([facility]) [address], [place], [address], 02/12/2024 08:26:26 02/11/2002/12/2024 CBC, PLATE LET, NO DIFFE RENTI AL WBC 4.6 x10e3 /uL 3.4-10 .8 Not Available [facility] ([facility]) [address] [facility], [place], [address], 02/12/2024 08:26:27 02/11/20 24 02/12/2024 CBC, PLATE LET, NO DIFFE RENTI AL RBC 4.97 x10e6 /uL 4.14-5 .80 Not Available [facility] ([facility]) [address] [facility], [place], [address], 02/12/2024 08:26:27 02/11/2002/12/2024 CBC, PLATE LET, NO DIFFE RENTI AL hemoglobin 15.6 g/dL 13.0-1 7.7 Not Available [facility] ([facility]) [address] [place], [address], 02/12/2024 08:26:27 02/11/2002/12/2024 CBC, PLATE LET, NO DIFFE RENTI AL hematocrit 45.6 % 37.5-5 1.0 Not Available [facility] ([facility]) [address] [place], [address], 02/12/2024 08:26:27 02/11/20 24 02/12/2024 CBC, PLATE LET, NO DIFFE RENTI AL MCV 92 fL 79-97 Not Available [facility] ([facility]) [address] [place], [address], 02/12/2024 08:26:27 02/11/20 24 02/12/2024 CBC, PLATE LET, NO DIFFE RENTI AL MCH 31.4 pg 26.6-3 3.0 Not Available [facility] ([facility]) [address] [facility], [place], [address], 02/12/2024 08:26:27 02/11/20 24 02/12/2024 CBC, PLATE LET, NO DIFFE RENTI AL MCHC 34.2 g/dL 31.5-3 5.7 Not Available [facility] ([facility]) [address] [facility] [address], [place], [address], 02/12/2024 08:26:27 02/11/20 24 02/12/2024 CBC, PLATE LET, NO DIFFE RENTI AL RDW 11.9 % 11.6-1 5.4 Not Available [facility] ([facility]) [address] [facility], [place], [address], 02/12/2024 08:26:27 02/11/20 24 02/12/2024 CBC, PLATE LET, NO DIFFE RENTI AL platelets 199 x10e3 /uL 150-45 0 Not Available [facility] ([facility]) [address] [place], [address], 02/12/2024 08:26:27 05/18/1905/18/2024 Influ neville virus A and B and SARS- CoV+S ARS-C oV-2 (COVI D-19) Ag panel - Upper respi rator y speci men by Rapid immun oassa y influenza virus A Ag [presence] in specimen by immunofluore scence Positi ve Not Available Not Available 17:55:32 05/18/19 25 05/18/2024 Influ neville virus A and B and SARS- CoV+S ARS-C oV-2 (COVI D-19) Ag panel - Upper respi rator y speci men by Rapid immun oassa y influenza virus B Ag [presence] in specimen by immunofluore scence Negati ve normal Not Available Not Available 17:55:32 05/18/19 25 05/18/2024 Influ neville virus A and B and SARS- CoV+S ARS-C oV-2 (COVI D-19) Ag panel - Upper respi rator y speci men by Rapid immun oassa y sars-cov+suzanne s-cov-2 (covid-19) Ag [presence] in respiratory system specimen by rapid immunoassay Negati ve normal Not Available Not Available 17:55:32 05/18/19 25 05/18/2024 Influ neville virus A and B and SARS- CoV+S ARS-C oV-2 (COVI D-19) Ag panel - Upper respi rator y speci men by Rapid immun oassa y reagent lot number [id number] normal Not Available Not Available 05/07 17:55:32 05/18/19 25 05/18/2024 Influ neville virus A and B and SARS- CoV+S ARS-C oV-2 (COVI D-19) Ag panel - Upper respi rator y speci men by Rapid immun oassa y internal control result Labora tory data interp retati on normal Not Available Not Available 17:55:32 05/18/19 25 05/18/2024 Strep tococ cus pyoge carla Ag [Pres ence] in Throa t by Immun ofluo resce nce streptococcu s pyogenes Ag [presence] in throat by immunofluore scence Negati ve normal Not Available Not Available 17:55:32 05/18/19 25 05/18/2024 Strep tococ cus pyoge carla Ag [Pres ence] in Throa t by Immun ofluo resce nce reagent lot number [id number] normal Not Available Not Available 05/07 17:55:32 05/18/19 25 05/18/2024 Strep tococ cus pyoge carla Ag [Pres ence] in Throa t by Immun ofluo resce nce internal control result Labora tory data interp retati on normal Not Available Not Available 17:55:32 07/13/19 24 10/29/2022 CT, chest , w/o contr ast No observ ation record ed. [facility] [address] [place], [address], 07/20/2023 16:36:47 08/25/19 24 05/14/2023 CT, chest , w/o contr ast No observ ation record ed. [address] [place], [address], 09/14/2023 23:08:09 Result Notes None recorded. Problems Name Problem SNOMED Code Status Onset Date Resolution Date Notes Provider Name and Address Organization Details Recorded Time Mild asthma 601506520 Active 2023 Feliberto Fletcher MD Attn: Lasha hanson,[address] [facility], [place], [address], [facility] 21:41:42 CT of chest abnormal 077824654798615 02 Active 2023 Feliberto Fletcher MD Attn: Lasha hanson,[address] [facility], [place], [address], [facility] 4 21:41:56 Problem Notes None recorded. Procedures Surgical History Date Name Laterality Status Provider Name and Address Organization Details Recorded Time Eye Surgery completed TRISTAN Lemus [facility] 07/13/2023 15:55:21 Imaging Results Imaging Date Name Status LastModified by [facility] Details LastModified Time 10/29/2022 CT, chest, w/o contrast completed [facility] [address] [place], [address], 07/20/2023 16:36:47 05/14/2023 CT, chest, w/o contrast completed [address] [place], [address], 09/14/2023 23:08:09 Procedure Notes None recorded. Medical Equipment None Reported. Allergies No known drug allergies Medications Name Sig Start Date Stop Date Status Note LastModified by Organization Details LastModified Time montelukast 10 mg tablet TAKE 1 TABLET BY MOUTH EVERY DAY 07/12 completed Not Available Not Available Not Available albuterol sulfate HFA 90 mcg/actuati on aerosol inhaler Inhale 2 puffs every 4 hours by inhalatio n route as needed. active Not Available Not Available No t Available Vitals Date Recorded Body height Body mass index (BMI) Body weight Heart rate Oxygen saturation Oxygen saturation in Arterial blood by Pulse oximetry Systolic blood pressure Diastolic blood pressure Provider Name and Address Organization Details Last Updated DateTime 4 177.8 cm 34.3 kg/m2 874850. 58 g 64 /min 98 % 98 % 120 mm[Hg] 78 mm[Hg] TRISTAN Lemus [facility] 15:57:01 Date Recorded Body height Body mass index (BMI) Body weight Heart rate Oxygen saturation Oxygen saturation in Arterial blood by Pulse oximetry Systolic blood pressure Diastolic blood pressure Provider Name and Address Organization Details Last Updated DateTime 177.8 cm 33.1 kg/m2 078241. 48 g 58 /min 99 % 99 % 126 mm[Hg] 72 mm[Hg] [facility] 16:20:39 Social History Question Answer Notes LastModified by Organizat ion Details LastModified Time Tobacco Smoking Status Never Smoker TRISTAN Lemus [facility] [place] - [facility] 07/13/2023 15:58:18 Do You Have An Advance Directive? No Information not available 02/01/2024 What Is Your Level Of Alcohol Consumption? Moderate Drink Beer Socially Information not available 02/01/2024 Are You Blind Or Do You Have Difficulty Seeing? No Information not available 02/01/2024 What Is Your Level Of Caffeine Consumption? Moderate Information not available 02/01/2024 In The 14 Days Before Symptom Onset, Have You Had Close Contact With A Laboratory-confir med COVID-19 While That Case Was Ill? No Information not available 02/01/2024 In The 14 Days Before Symptom Onset, Have You Had Close Contact With A Person Who Is Under Investigation For COVID-19 While That Person Was Ill? No Information not available 02/01/2024 Have You Been To An Area Known To Be High Risk For COVID-19? No Information not available 02/01/2024 Are You Currently Employed? Yes Information not available 02/01/2024 Are You Deaf Or Do You Have Serious Difficulty Hearing? No Information not available 02/01/2024 What Type Of Diet Are You Following? REGULAR Information not available 02/01/2024 What Is The Highest Grade Or Level Of School You Have Completed Or The Highest Degree You Have Received? [id number] Information not available 02/01/2024 Are There Any Guns Present In Your Home? No Information not available 02/01/2024 What Was The Date Of Your Most Recent Tobacco Screening? 02/01/2024 Non Smoker Information not available 02/01/2024 What Is Your Relationship Status? Information not available 02/01/2024 Do You Use Your Seat Belt Or Car Seat Routinely? Yes Information not available 02/01/2024 Do You Have Smoke And Carbon Monoxide Detectors In Your Home? Yes Information not available 02/01/2024 Do You Use Any Illicit Or Recreational Drugs? No Information not available 02/01/2024 Do You Use Sunscreen Routinely? No Information not available 02/01/2024 Sex: Male Functional Status Question Answer Note LastModified by Organization D etails LastModified Time Are you able to care for yourself? Yes Information not available 02/01/2024 What is your exercise level? Moderate Information not available 02/01/2024 Mental Status None recorded. Family History Relationship Description Onset Age of this Age Resolved Age Notes LastModified by Organization Details LastModified Time Father Hypercholest erolemia [email or web address] Not available 11/2023 15:57:50 Father Hypertensive disorder [email or web address] Not available 11/2023 15:57:55 Mother Migraine [email or web address] Not availa ble 07/13/2023 15:58:05 Medical History Condition Response Muscle, Joint, or Bone Problems Y Asthma Y Immunizations Vaccine Type Date Status Note Provider Nam e and Address Organization Details Recorded Time COVID-19 vaccine, vector-nr, rS-Ad26, PF, 0.5 mL 1 completed Marilin Bose, R[place], [place] [facility] 07/13/2023 15:59:42 Tdap 6 completed Marilin Bose[place] [facility] 07/13/2023 15:59:42 Influenza, split virus, trivalent, preservative 4 completed Marilin Bose, [place] [facility] 07/13/2023 15:59:42 Influenza, split virus, quadrivalent, PF 0 completed Marilin Bose, [place] [facility] 07/13/2023 15:59:42 Influenza, split virus, quadrivalent, PF 9 completed Marilin Bose, [place] [facility] 07/13/2023 15:59:42 Influenza, split virus, quadrivalent, PF 8 completed Marilin Bose, [place] [facility] 07/13/2023 15:59:42 Past Encounters Encounter ID Performer Location Encounter Start Date Encounter Closed Date Diagnosis/Indication Diagnosis SNOMED-CT Code Diagnosis ICD10 Code Diagnosis Note [id number] Feliberto Fletcher MD [facility] [address] [place] [address] 07/13/2023 15:41:31 07/13/2023 16:23:01 Asthma 602349232 J45.909 Standard c hest X-ray abnormal 243212621 R93.89 [id number] Feliberto Fletcher MD [facility] [address] [place] [address] 02/01/2024 16:05:46 02/01/2024 17:22:47 Body mass index 30+ - obesity 334750396 Z68.33 BMI 33.1 Obesity 530753513 E66.9 Asthma 669081875 J45.90 9 Screening for malignant neoplasm of prostate 278144989 Z12.5 Screening for cardiovascular system disease 028116792 Z13.6 Screening for malignant neoplasm of colon 783454071 Z12.11 Computed t omography result abnormal 789459860 R93.89 Health Concerns Section Related Observation LastModified by Organization Detai ls LastModified Time None Recorded Concern Status LastModified by Organization Details LastModified Time None Recorded Advance Directives Directive N: Payers Encounter Date Sequence Insurance Name Policy Number Policy Lin Covered Member ID Lin Member ID Guarantor Name 07/13/2023 1 [facility] [id number] Jarocho Mcdonnell [id number] Jarocho Mcdonnell 02/01/2024 1 [facility] [id number] Jarocho [facility] [id number] Jarocho Mcdonnell Notes Date Note Type Note Provider Name and Address Organization Details Recorded Time 07/13/2023 text/html Asthma has been doing fine rhinitis has been stable flaring up a little bit though because he has been out of his [place] Feliberto Fletcher MD Attn: Accounting[address] [place], [address], [place] [facility] 07/19/2023 15:16:43 02/01/2024 text/html asthma stable us es albuterol inhaler about once a month and it is usually an environmental precipitant. Obesity needs to lose some weight needs some help doing that. Feliberto Fletcher MD Attn: [address] [place], [address], [place] [facility] 02/01/2024 21:43:33
--- OUTSIDE RECORDS SUMMARY | 2024-07-23 13:24 | XMS_ITS | Patient Health Record ---
Author Organization [facility] ([address]) Address [address] [place] [address] Care Team Providers Care Card Grader Name Role Phone Chance Feliberto Primary Care Provider UnavailDeb Hill Unavailable [phone] [facility]-Migration, Provider Unavailable Unavailab le Allergies No Known Allergies Reason For Referral No Information Medications Medication SIG (Take, Route, Frequency, Duration) Notes Start Date End Date Status Montelukast Sodium 10 MG 1 tab(s) orally once a day Active XYZAL 5 mg 1 tab(s) orally once a day (in the evening) for 30 day(s) 09/13/2022 Active ALBUTEROL 90 mcg/inh 2 puff(s) inhaled e very 6 hours uses prn Active MONTELUKAST 10 mg 1 tab(s) orally once a day Active Xyzal Allergy 24HR 5 MG 1 tab(s) orally once a day (in the evening) for 30 day(s) 09/13/2022 Active Albuterol Sulfate HFA 108 (90 Base) MCG/ACT 2 puff(s) inhaled every 6 hours uses prn Active Immunizations Vaccine Route Administration Date Status Comme nts NOC Tdap Unknown 02/10/2016 Administered Portal Infor mation Influenza Unknown 01/05/2020 Administered Portal Infor mation Problems Problem Type SNOMED Code ICD Code Onset Dates Problem Status W/U Status Risk Notes Problem Chronic allergic conjunctivitis (76052601) Other chronic allergic conjunctivitis (H10.45) Active confirmed Problem Allergic rhinitis caused by pollen (disorder) (03883188) Allergic rhinitis due to pollen (J30.1) Active confirmed Problem Allergic rhinitis (35210637) Other allergic rhinitis (J30.89) Active confirmed Problem Chronic rhinitis (78188363) Chronic rhinitis (J31.0) Active confirmed Problem Chronic cough (47279515) Chronic cough (R05.3) Active confirmed Encounters Encounter Location Date Provider Diagnosis [address] [address] 09/19/2023 Provider Cori Allergic rhinitis due to pollen J30.1 and Chronic cough R05.3 Assessments Encounter Date Diagnosis (ICD Code) Assessment Notes Treatment Notes Treatment Clinical Notes Section Notes 09/19/2023 Allergic rhinitis due to pollen (ICD-10 - J30.1) 09/19/2023 Chronic cough (ICD-10 - R05.3) Plan Of Treatment No Information Insurance Providers Payer Name Payer Address Payer Phone Subscriber Number Group Number Insured Name Patient Relationship to Insured Coverage Start Date Coverage End Date [facility] [id number] [place] [address] [id number] Jarocho Mcdonnell Self - patient is the insured Medical (General) History Medical History History ICD Code Seasonal Allergies Chronic cough R05.3 Surgical History Surgery Date(Month/Year) [facility] Hospitalization History Reason Date(Month/Year) skull fracture 1976
--- OUTSIDE RECORDS SUMMARY | 2024-07-23 13:24 | XMS_ITS | CONTINUITY OF CARE DOCUMENT ---
Author Name jory corley Address Unknown Organization [facility] Office Address [address] [place] [address] Phone [phone] Care Team Providers Care Mechanical Sound Technician Name Role Phone Gurdeep Merino MD Unavailable [phone] LORENZO AKERS DO Unavailable [phone] LORENZO AKERS DO Unavailable [phone] PROBLEMS Condition Status Date Provider Notes Cardiovascular screening active Cathleen Richards INSURANCE PROVIDERS Payer name Policy type / Coverage type [place] [employer] green party ID [id number] PAY TREATMENT PLAN Date Name CT, Coronary Calcium Score HISTORY OF PROCEDURES Procedure Date Procedure Name Provider Procedure Notes S tatus CT- Coronary CA score Gurdeep Merino MD completed
--- OUTSIDE RECORDS SUMMARY | 2024-07-23 13:25 | XMS_ITS ---
Author Organization [facility] [place] ([address]) Address [address] [place] [address] Care Team Providers Care Retail Aide Name Role Phone Feliberto Fletcher Primary Care Provider UnavailDeb Hill Unavailable [phone] [facility]Migration, Provider Unavailable Unavailab le [facility] Conversion Encounter Medications Medication SIG (Take, Route, Frequency, Duration) Notes Start Date End Date Status Montelukast Sodium 10 MG 1 tab(s) orally once a day Active Xyzal Allergy 24HR 5 MG 1 tab(s) orally once a day (in the evening) for 30 day(s) 09/13/2022 Active Albuterol Sulfate HFA 108 (90 Base) MCG/ACT 2 puff(s) inhaled every 6 hours uses prn Active Encounters Encounter Location Date Provider Diagnosis [address] [address] 09/19/2023 Provider ZZ-Migration Allergic rhinitis due to pollen J30.1 and Chronic cough R05.3 Assessments Encounter Date Diagnosis (ICD Code) Assessment Notes Treatment Notes Treatment Clinical Notes Section Notes 09/19/2023 Allergic rhinitis due to pollen (ICD-10 - J30.1) 09/19/2023 Chronic cough (ICD-10 - R05.3) Plan Of Treatment Medication Medication Name Sig Start Date Stop Date Notes Montelukast Sodium 10 MG 1 tab(s) orally once a day Xyzal Allergy 24HR 5 MG 1 tab(s) orally once a day (in the evening) for 30 day(s) 09/13/2022 Albuterol Sulfate HFA 108 (9 0 Base) MCG/ACT 2 puff(s) inhaled every 6 hours uses prn Progress Notes * Jarocho MCDONNELLDOB:1975 (49 yo M)Acc No.[id number]:09/19/2023 Patient: Jarocho MARLOW Provider: Florence Byrne :1975 A ge:48 Y S ex:Male Date:09/19/2023 Address:[facility] [address], [address] [place], [id number] Pcp:Feliberto Fletcher Subjective: * Chief Complaints: * [facility] . [facility] * Medical History: Objective: * Vitals: Assessment: * Assessment: 1. C hronic cough - R05.3 (Primary) 2 . A llergic rhinitis due to pollen - J30.1 Plan: * Treatment: 2. A llergic rhinitis due to pollen Start Xyzal Allergy 24HR Tablet, 5 MG, 1 tab(s), orally, once a day (in the evening), 30 day(s), 30. * Billing Information: * Visit Code: * Procedure Codes: * Electronic signature of Prov ider ZZ-Migration on 07/23/2024 at 01:24 PM CDT Sign off status: Pending * Provider: Florence Byrne Date: 0 09/19/2023 Generated for Brandy juares/Gary/Normaitting on: 0 07/23/2024 01:24 PM CDT
== END 2024-07-23 13:20 | disposition home or self-care (01) ==
PROVIDERS: PCP Internal Medicine; Visit Provider Internal Medicine
DX: R93.89 Abnormal findings on diagnostic imaging of other specified body structures (principal)
CPT/HCPCS: 71250